=== PATIENT | male | born 1980 | race Caucasian/White ===

== ENCOUNTER 2020-01-16 13:43 | Emergency (ER) | payer BC ==
[2020-01-16 13:55] VITALS: RESP 18; TEMP 98.9
[2020-01-16 16:14] LABS: Amphetamine Screen,Urine Not Detected (NotDetected); Barbiturate Screen,Urine Not Detected (NotDetected); Benzodiazepines Screen,Urine Not Detected (NotDetected); Cocaine Screen,Urine Not Detected (NotDetected); Methadone Screen, Urine Not Detected (NotDetected); Opiate Screen,Urine Not Detected (NotDetected); Oxycodone Screen, Urine Not Detected (NotDetected); Phencyclidine Screen,Urine Not Detected (NotDetected); Tricyclic Antidepressant,Urine Not Detected (NotDetected); Urn Cannabinoid Scrn Detected (NotDetected)
--- NOTE | 2020-01-16 16:28 | ED ---
Psych HPI - General Chief Complaint: Psychiatric Symptoms Stated Complaint: Mental Health Time Seen by Provider: 01/16/20 14:44 Source: patient Mode of arrival: ambulatory - History of Present Illness Initial Comments: patient is a 39-year-old male presenting to emergency Department for psychiatric evaluation. Patient is accompanied by his . Patient does have history of P TSD and there is concern that his symptoms are worsening or the past few months. Patient's states that he has been having outbursts, being verbally abusive, having erratic behavior. Patient does have a therapist at [facility]. He denies being homicidal or suicidal at this time. He denies any pain, fevers. He does admit to using marijuana, no other drugs or alcohol. There are no further complaints at this time. Upon arrival to the ER, his vital signs are stable. - Related Data Home Medications Medication Instructions Recorded Confirmed FLUoxetine HCL [PROzac] 20 mg PO HS 01/16/20 01/16/20 Methocarbamol [Robaxin-750] 750 mg PO HS 01/16/20 01/16/20 QUEtiapine [SEROquel] 25 mg PO HS 01/16/20 01/16/20 hydrOXYzine pamoate [Vistaril] 25 mg PO BID PRN 01/16/20 01/16/20 lisinopriL [Zestril] 20 mg PO DAILY 01/16/20 01/16/20 Allergies Allergy/AdvReac Type Severity Reaction Status Date / Time No Known Allergies Allergy Unverified 01/16/20 19:14 Review of Systems ROS Statement: Those systems with pertinent positive or pertinent negative responses have been documented in the HPI. ROS Other: All systems not noted in ROS Statement are negative. Past Medical History Past Medical History: Hypertension History of Any Multi-Drug Resistant Organisms: None Reported Additional Past Surgical History / Comment(s): facial reconstrucion surgery as a child Past Psychological History: Anxiety, Depression, PTSD Smoking Status: Current every day smoker Past Alcohol Use History: None Reported Past Drug Use History: Marijuana General Exam - General Exam Comments Initial Comments: GENERAL: Patient is well-developed and well-nourished. Patient is nontoxic and in no acute distress. HEAD: Atraumatic, normocephalic. EYES: Pupils equal round and reactive to light, extraocular movements intact, sclera anicteric, conjunctiva are normal. Eyelids were unremarkable. ENT: TMs normal, nares patent, oropharynx clear without exudates. Moist mucous membranes. NECK: Normal range of motion, supple without lymphadenopathy or JVD. LUNGS: Unlabored respirations. Breath sounds clear to auscultation bilaterally and equal. No wheezes rales or rhonchi. HEART: Regular rate and rhythm without murmurs, rubs or gallops. ABDOMEN: Soft, nontender, normoactive bowel sounds. No guarding, no rebound. No masses appreciated. : Deferred MUSCULOSKELETAL: Normal extremities with adequate strength and normal range of motion, no pitting or edema. No clubbing or cyanosis. NEUROLOGICAL: Patient is alert and oriented x 3. Motor and sensory are also intact. Cranial nerves II through XII grossly intact. Symmetrical smile. Normal speech, normal gait. PSYCH: patient appears anxious. SKIN: Warm, Dry, normal turgor, no rashes or lesions noted. Limitations: no limitations Course Vital Signs 01/16/20 01/16/20 01/16/20 13:50 14:54 16:00 Temperature 98.9 F Pulse Rate 92 Respiratory 18 18 18 Rate Blood Pressure 127/73 O2 Sat by Pulse 100 Oximetry 01/16/20 01/16/20 17:00 18:00 Temperature Pulse Rate Respiratory 18 18 Rate Blood Pressure O2 Sat by Pulse Oximetry - Reevaluation(s) Reevaluation #1: 01/16/20 19:26 she was evaluated by EPS. Patient's has concerns patient being discharged. She started crying and yelling and stating that she believes her something seriously wrong with her . He's been having strange behaviors. Patient's exam is unremarkable still. He has no neuro deficits. I did order a computed tomography scan of the head to rule out mass. [facility] was here for a different patient and they've reviewed the patient's notes, he's been keeping all of his appointments, he's been taking his medications. He has another appointment scheduled for January 31. Medical Decision Making - Medical Decision Making patient is a 39-year-old male here for psychiatric evaluation. Vital signs are stable. He denies any suicidal or homicidal thoughts at this time. patient was evaluated by EPS nurse. She recommended discharge. Patient's became irritated, demanding that we were not doing enough for her . It did order a computed tomography scan of his brain to rule out a mass. CT is negative for mass or midline shift, no acute process. Patient has been keeping all of his appointments, he stated his medications as directed. he has a follow-up appointment on January 31.Patient denies any suicidal homicidal thoughts. He is stable for discharge. He does agree to safety plan. patient is in agreement with this plan of care. Case discussed with Dr. Todd. - Lab Data Lab Results 01/16/20 Range/Units 15:39 Urine Opiates Screen Not Detected (NotDetected) Ur Oxycodone Screen Not Detected (NotDetected) Urine Methadone Screen Not Detected (NotDetected) Ur Propoxyphene Screen Not Detected (NotDetected) Ur Barbiturates Screen Not Detected (NotDetected) U Tricyclic Antidepress Not Detected (NotDetected) Ur Phencyclidine Scrn Not Detected (NotDetected) Ur Amphetamines Screen Not Detected (NotDetected) U Methamphetamines Scrn Not Detected (NotDetected) U Benzodiazepines Scrn Not Detected (NotDetected) Urine Cocaine Screen Not Detected (NotDetected) U Marijuana (THC) Screen Detected H (NotDetected) Disposition Clinical Impression: Depression Disposition: HOME SELF-CARE Condition: Stable Instructions (If sedation given, give patient instructions): Depression (ED) Additional Instructions: Please return to the Emergency Department if symptoms worsen or any other concerns. Follow-up with [facility] on January 31, or your next scheduled appointment. Is patient prescribed a controlled substance at d/c from ED?: No Referrals: Yu Seaman DO [Primary Care Provider] - 1-2 days
--- NOTE | 2020-01-16 19:59 | CT ---
EXAMINATION TYPE: CT brain wo con DATE OF EXAM: 01/16/2020 HISTORY: Altered mental status. CT DLP: 1099.4 mGycm. Automated Exposure Control for Dose Reduction was Utilized. TECHNIQUE: CT scan of the head is performed without contrast. COMPARISON: None FINDINGS: There is no acute intracranial hemorrhage, midline shift, or mass effect identified. Brain parenchyma appears normal, although the inferior cerebellum and medulla are incompletely imaged. The ventricles , sulci, and cisterns are normal in size and configuration. No extra-axial fluid collection. Bones an d extracranial soft tissues are intact. The globes are grossly symmetric. The mastoid air cells are c lear. There is mucosal thickening of the maxillary sinuses bilaterally. IMPRESSION: 1. No acute intracranial hemorrhage, midline shift, or mass effect. 2. The inferior aspect of the cerebellum and brainstem are incompletely imaged. 3. Mucosal thickening of the maxillary sinuses.
[2020-01-16 20:10] VITALS: BP 149/80; PULSE 71
== END 2020-01-16 20:14 | disposition home or self-care (01) ==
LOC: EC 13:43
DX: F32.9 Major depressive disorder, single episode, unspecified (principal); F41.9 Anxiety disorder, unspecified; I10 Essential (primary) hypertension; F43.10 Post-traumatic stress disorder, unspecified; F17.200 Nicotine dependence, unspecified, uncomplicated; Z79.899 Other long term (current) drug therapy
CPT/HCPCS: 70450; 80306; 82075; 99284

== ENCOUNTER 2020-01-22 15:31 | Inpatient (IN) | payer BC ==
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
[2020-01-22 20:31] LABS: Amphetamine Screen,Urine Not Detected (NotDetected); Barbiturate Screen,Urine Not Detected (NotDetected); Benzodiazepines Screen,Urine Not Detected (NotDetected); Cocaine Screen,Urine Not Detected (NotDetected); Methadone Screen, Urine Not Detected (NotDetected); Opiate Screen,Urine Detected (NotDetected); Oxycodone Screen, Urine Not Detected (NotDetected); Phencyclidine Screen,Urine Not Detected (NotDetected); Tricyclic Antidepressant,Urine Not Detected (NotDetected); Urn Cannabinoid Scrn Detected (NotDetected)
[2020-01-22] MEDS ORDERED: NICOTINE 21MG/24HR PATCH TRANSDERM STA ×2 (20:37→22:40)
[2020-01-23] MEDS ORDERED: IBUPROFEN 400 MG TAB PO STA (09:56)
[2020-01-23] MEDS ORDERED: NICOTINE 21MG/24HR PATCH TRANSDERM STA (11:20)
[2020-01-23] MEDS ORDERED: hydrOXYzine pamoate 25 MG CAP PO PRN (14:35)
[2020-01-23] MEDS ORDERED: LORazepam 1 MG TAB PO PRN (14:36)
[2020-01-23] MEDS ORDERED: MAGNESIUM HYDROXIDE 2,400 MG/10 ML CUP PO PRN (14:36)
[2020-01-23] MEDS ORDERED: ZIPRASIDONE 20 MG VIAL IM PRN (14:36)
[2020-01-23] MEDS ORDERED: ACETAMINOPHEN TAB 325 MG TAB PO PRN (14:36)
[2020-01-23] MEDS ORDERED: MAG HYDROX/AL HYDROX/SIMETH 30 ML CUP PO PRN (14:36)
[2020-01-23] MEDS ORDERED: LORazepam 2 MG/ML INJ IM PRN (14:42)
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
[2020-01-23] MEDS ORDERED: lisinopriL 20 MG TAB PO STA (18:42)
[2020-01-23] MEDS ORDERED: FLUoxetine HCL 20 MG CAP PO SCH (21:00)
[2020-01-23] MEDS ORDERED: QUEtiapine 25 MG TAB PO SCH (21:00)
[2020-01-23] MEDS: AMOXIC-POT CLAV 875-125MG 1 EACH TAB PO SCH (22:24)
[2020-01-24 07:29] LABS: Basophils # (A) 0.1 k/uL (0-0.2); Basophils % (A) 1 %; Eosinophils # (A) 0.3 k/uL (0-0.7); Eosinophils % (A) 3 %; HCT 48.3 % (39.0-53.0); HGB 15.7 gm/dL (13.0-17.5); Lymphocytes # (A) 2.8 k/uL (1.0-4.8); Lymphocytes % (A) 31 %; MCH 28.9 pg (25.0-35.0); MCHC 32.6 g/dL (31.0-37.0); MCV 88.7 fL (80.0-100.0); Mean Platelet Volume 6.7; Monocytes # (A) 0.5 k/uL (0-1.0); Monocytes % (A) 6 %; Neutrophils # (A) 5.4 k/uL (1.3-7.7); Neutrophils % (A) 58 %; Platelet Count 241 k/uL (150-450); RBC 5.44 m/uL (4.30-5.90); WBC 9.3 k/uL (3.8-10.6)
[2020-01-24 07:31] LABS: ALT 43 U/L (4-49); AST 41 U/L (17-59); African American GFR (CKD) >90 (>60 ml/min/1.73 sqM); Albumin 4.6 g/dL (3.5-5.0); Alkaline Phosphatase 58 U/L (38-126); Anion Gap 7 mmol/L; Blood Urea Nitrogen 16 mg/dL (9-20); Calcium 9.5 mg/dL (8.4-10.2); Carbon Dioxide 27 mmol/L (22-30); Chloride 107 mmol/L (98-107); Cholesterol 256 mg/dL (<200); Glucose 90 mg/dL (74-99); HDL Cholesterol 35 mg/dL (40-60); LDL Cholesterol,Calculated 190 mg/dL (0-99); Non-African American GFR(CKD) >90 (>60 ml/min/1.73 sqM); Potassium 4.6 mmol/L (3.5-5.1); Sodium 141 mmol/L (137-145); Total Bilirubin 0.9 mg/dL (0.2-1.3); Triglycerides 154 mg/dL (<150)
[2020-01-24] MEDS: NICOTINE 21MG/24HR PATCH TRANSDERM SCH (08:49)
[2020-01-24] MEDS: AMOXIC-POT CLAV 875-125MG 1 EACH TAB PO SCH ×2 (08:49→21:09)
[2020-01-24] MEDS: lisinopriL 20 MG TAB PO SCH (08:49)
[2020-01-24] MEDS ORDERED: QUEtiapine 100 MG TAB PO STA (10:25)
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
[2020-01-24 15:20] LABS: Hemoglobin A1C 5.2 % (4.0-6.0)
[2020-01-24] MEDS ORDERED: QUEtiapine 200 MG TAB PO SCH (21:00)
[2020-01-25] MEDS: lisinopriL 20 MG TAB PO SCH (10:31)
[2020-01-25] MEDS: NICOTINE 21MG/24HR PATCH TRANSDERM SCH (10:31)
[2020-01-25] MEDS: AMOXIC-POT CLAV 875-125MG 1 EACH TAB PO SCH ×2 (10:31→21:01)
[2020-01-25] MEDS: QUEtiapine 100 MG TAB PO SCH ×2 (10:32→21:01)
--- NOTE | 2020-01-25 13:04 | P.PN ---
Subjective Progress Note Date: 01/25/20 Principal diagnosis: Bipolar 1 manic Subjective: Patient says he slept poorly last night but it was because a new person was admitted and was screaming the middle all the night otherwise he says he is sleeping okay. Otherwise he feels that the medication is helped him be more even keel. Objective the patient has not had Prozac which I think was during things up but when he had Seroquel at 200 last night he got akathisia. But did not get it after the 100 dose Vital signs temperature 97.7 heart rate 73 respiration 20 blood pressure 109/70 Labs hematology is negative general chemistry is negative except for the elevated cholesterol triglycerides and LDL Groups the patient says that he enjoys groups and has been attending seems attentive talks a little loud and slightly pressured Staff assessment is patient is good with his hygiene social with select peers oriented person place time and circumstance denies anxiety symptoms or suicidality or homicidality Mental status exam: Patient is much calmer than yesterday although still mildly pressured he does not change topic to ramble or give way too much irrelevant detail Assessment patient is benefiting from low-dose mood stabilizer and the plan is to give it to him 100 twice a day and see if he tolerates it otherwise would have to shift over to Zyprexa which should prolong his stay Objective - Vital Signs Vital signs: Vital Signs Temp 97.7 F 01/25/20 10:30 Pulse 73 01/25/20 10:30 Resp 20 01/25/20 10:30 BP 109/70 01/25/20 10:30 Pulse Ox 98 01/24/20 06:53 - Labs CBC & Chem 7: 01/24/20 06:36 01/24/20 06:36
[2020-01-25] MEDS ORDERED: BENZTROPINE MESYLATE 1 MG TAB PO ONE (22:16)
[2020-01-26 02:12] VITALS: BP 107/72; PULSE 72; RESP 16; TEMP 97.6
--- NOTE | 2020-01-26 08:21 | P.DS ---
Providers Date of admission: 01/23/20 14:07 Expected date of discharge: 01/26/20 Attending physician: Nba Nichols MD Consults: 01/23/20 14:36 Consult Physician Routine Consulting Provider: Vidal Aguilar Consult Reason/Comments: H&P and medical Do you want consulting provider notified?: Yes Primary care physician: Yu Seaman DO Hospital Course: Patient was admitted to the psychiatric unit on 01/21 and discharged on 01/25 Diagnosis: Bipolar 1 mady Hospital course patient went to groups and classes and participated well he was spontaneous and more and more able to control his intervention initiated well with patients and staff. He tolerated the medicine and found that it did clear his thinking. He was started on Seroquel 100 in the morning and 200 mg at night however the 200 at night seemed to be followed by restless leg and then getting really sleepy and having trouble waking up. We backed off to 100 twice a day but then realized the nighttime B she was probably from the nicotine patch. However the low-dose seems working and I think in part because he is no longer taking Prozac. Staff assessment patient was appropriate calm good hygiene thought process was organized denies hallucinations and delusions suicidality throughout his stay no homicidality. Mental status exam: The patient says that he was never suicidal but said some things without realizing how they'll be taken because of his racing thoughts. He is alert oriented to person place time and circumstance is calm good eye contact nonintrusive stays on topic gait and station normal self-care is excellent psychomotor activity is normal no aggression or tearfulness Plan is to have him continue on Seroquel probably take all 200 mg at night and I told him he could increase to 300 if he needs to be is to call me with questions between discharge and when he is seen by his follow-up DrLiliya Assessment: The patient is still bubbly and slightly pressured but no danger to self or others and seems committed to follow-up so I think he is ready for discharge. He understands that if he needs to adjust his medicine between now and his follow-up appointment he can call the hospital and get ahold of me Prognosis: Is good Health Concerns: The patient had some restless legs at night but it turns out that he was forgetting to take is nicotine patch off no other acute problems Pertinent Studies: Vital signs temperature 97.6 heart rate 72 respirations 16 blood pressure 107/72 Labs hematology was normal general chemistry normal Procedures: None Patient Condition at Discharge: Fair Plan - Discharge Summary New Discharge Prescriptions: New Amoxic-Pot Clav 875-125Mg [Augmentin 875-125] 1 each PO Q12HR tab QUEtiapine [SEROquel] 100 mg PO BID 30 Days #60 tab hydrOXYzine pamoate [Vistaril] 25 mg PO TID 30 Days #90 cap Continue lisinopriL [Zestril] 20 mg PO DAILY Discontinued QUEtiapine [SEROquel] 25 mg PO HS FLUoxetine HCL [PROzac] 20 mg PO HS Amoxicillin/Potassium Clav [Augmentin 875-125 Tablet] 1 tab PO BID Discharge Medication List lisinopriL [Zestril] 20 mg PO DAILY 01/16/20 [History] Amoxic-Pot Clav 875-125Mg [Augmentin 875-125] 1 each PO Q12HR tab 01/26/20 [Rx] QUEtiapine [SEROquel] 100 mg PO BID 30 Days #60 tab 01/26/20 [Rx] hydrOXYzine pamoate [Vistaril] 25 mg PO TID 30 Days #90 cap 01/26/20 [Rx] Follow up Appointment(s)/Referral(s): Yu Seaman DO [Primary Care Provider] - 1-2 days Activity/Diet/Wound Care/Special Instructions: Activity and diet as tolerated. Avoid the use of street drugs and alcohol. Take all medications as prescribed. When you are in need of refills on your medications please contact your medical provider and/or outpatient psychiatrist to have this done. Please go to scheduled outpatient appointment for aftercare treatment. If symptoms return or become worse, call the crisis line at and/or go to the nearest emergency room for evaluation.
[2020-01-26] MEDS: lisinopriL 20 MG TAB PO SCH (08:55)
[2020-01-26] MEDS: QUEtiapine 100 MG TAB PO SCH (08:55)
[2020-01-26] MEDS: NICOTINE 21MG/24HR PATCH TRANSDERM SCH (08:55)
[2020-01-26] MEDS: AMOXIC-POT CLAV 875-125MG 1 EACH TAB PO SCH (08:55)
== END 2020-01-26 14:00 | disposition home or self-care (01) | DRG 885 ==
LOC: EC 15:31 → 3MHU 01-23 14:07
PROVIDERS: ADMIT Psychiatry & Neurology Psychiatry; ATTEND Psychiatry & Neurology Psychiatry
DX: F31.9 Bipolar disorder, unspecified (principal); R45.851 Suicidal ideations; E78.00 Pure hypercholesterolemia, unspecified; F17.200 Nicotine dependence, unspecified, uncomplicated; F43.10 Post-traumatic stress disorder, unspecified; G25.81 Restless legs syndrome; I10 Essential (primary) hypertension; K04.7 Periapical abscess without sinus; K05.30 Chronic periodontitis, unspecified; F41.9 Anxiety disorder, unspecified; Z79.899 Other long term (current) drug therapy; Z71.6 Tobacco abuse counseling; Y09 Assault by unspecified means
CPT/HCPCS: 80053; 80061; 80306; 82075; 83036; 84443; 85025; 99285